=== PATIENT | female | born 1970 | race Caucasian/White ===

== ENCOUNTER 2017-10-13 13:26 | Emergency (ER) | END 2017-10-13 14:38 | disposition home or self-care (01) ==

== ENCOUNTER 2018-08-28 04:14 | Emergency (ER) | payer BC ==
[~2018-08-28] VITALS: Ht 160 cm; Wt 75.5 kg
[~2018-08-28 04:14] MED LIST: CEPH-443 PO; HYDR-3498 PO; IBUP-1542 PO; MUPI22OI2 TOP
[2018-08-28 04:19] VITALS: Ht 160 cm; Wt 75.5 kg
--- NOTE | 2018-08-28 04:30 | ERD ---
ER Documentation Chief Complaint Chief Complaint redness to right arm, warm to touch HPI Is a 47-year-old female who presents with redness to her right arm, that is warm to touch. She works at [employer]– [place], has noticed her symptoms since today, she denies any history of trauma, no wounds or lacerations, she does have prior history of cellulitis of the face, otherwise healthy. ROS All systems reviewed and are negative except as per history of present illness. Medications Home Meds Active Scripts Cephalexin* (Keflex*) 500 Mg Capsule, 500 MG PO QID for 7 Days, CAP Prov:TOÑO BOSS MD 08/28/18 Sulfamethoxazole/Trimethoprim* (Bactrim Ds* Tablet) 1 Each Tablet, 1 TAB PO BID, #14 TAB Prov:TOÑO BOSS MD 08/28/18 Cephalexin* (Keflex*) 500 Mg Capsule, 500 MG PO QID for 7 Days, CAP Prov:MOISÉS CHAMPAGNE PA-C 10/13/17 Mupirocin* (Bactroban*) 2% -22 Gram Oint...g., 1 APPLIC TOP BID for 7 Days, EA Prov:MOISÉS CHAMPAGNE PA-C 10/13/17 Hydrocodone Bit-Acetaminophen* ([place]*) 5-325 Mg Tab, 1 TAB PO Q6 PRN for PAIN, #7 TAB Prov:MARYAN GATES 03/05/15 Ibuprofen* (Motrin*) 600 Mg Tab, 600 MG PO Q6, #30 TAB Prov:MARYAN GATES 03/05/15 Allergies Allergies: Coded Allergies: isosulfan blue (Verified Allergy, Severe, 03/05/15) BLUE DYE ALLERGY PMhx/Soc History of Surgery: Yes (right breast ) Anesthesia Reaction: No Hx Neurological Disorder: No Hx Respiratory Disorders: No Hx Cardiac Disorders: No Hx Psychiatric Problems: No Hx Miscellaneous Medical Probl: Yes (breast cancer) Hx Alcohol Use: No Hx Substance Use: No Hx Tobacco Use: No Smoking Status: Never smoker FmHx Family History: No diabetes Physical Exam Vitals Vital Signs Date Temp Pulse Resp B/P (MAP) Pulse Ox O2 O2 Flow FiO2 Time Delivery Rate 08/28/18 98.4 99 16 108/72 96 04:19 (84) Physical Exam Const: No acute distress Head: Atraumatic Eyes: Normal Conjunctiva ENT: Normal External Ears, Nose and Mouth. Neck: Full range of motion. No meningismus. Resp: Clear to auscultation bilaterally Cardio: Regular rate and rhythm, no murmurs Abd: Soft, non tender, non distended. Normal bowel sounds Skin: No petechiae or rashes Back: No midline or flank tenderness Ext: No cyanosis, or edema. There is an area of redness and warmth over the right upper extremity, that extends to about the level of the mid humerus, there is no crepitus, no palpable fluctuance, pulses intact distally, cap refills less than 2 seconds. Neur: Awake and alert Psych: Normal Mood and Affect Result Diagram: 08/28/1844008/28/18440 Results 24 hrs Laboratory Tests Test 08/28/18 04:41 White Blood Count 8.3 10^3/ul Red Blood Count 4.22 10^6/ul Hemoglobin 12.4 g/dl Hematocrit 37.1 % Mean Corpuscular Volume 87.9 fl Mean Corpuscular Hemoglobin 29.4 pg Mean Corpuscular Hemoglobin Concent 33.4 g/dl Red Cell Distribution Width 12.6 % Platelet Count 198 10^3/UL Mean Platelet Volume 10.1 fl Immature Granulocytes % 0.200 % Neutrophils % 82.6 % Lymphocytes % 13.4 % Monocytes % 3.6 % Eosinophils % 0.1 % Basophils % 0.1 % Nucleated Red Blood Cells % 0.0 /100WBC Immature Granulocytes # 0.020 10^3/ul Neutrophils # 6.9 10^3/ul Lymphocytes # 1.1 10^3/ul Monocytes # 0.3 10^3/ul Eosinophils # 0.0 10^3/ul Basophils # 0.0 10^3/ul Nucleated Red Blood Cells # 0.0 10^3/ul Sodium Level 140 mmol/L Potassium Level 3.9 mmol/L Chloride Level 104 mmol/L Carbon Dioxide Level 27 mmol/L Anion Gap 9 Blood Urea Nitrogen 15 mg/dl Creatinine 0.58 mg/dl Est Glomerular Filtrat Rate mL/min > 60 mL/min Glucose Level 118 mg/dl Calcium Level 9.3 mg/dl Total Bilirubin 0.8 mg/dl Direct Bilirubin 0.00 mg/dl Indirect Bilirubin 0.8 mg/dl Aspartate Amino Transf (AST/SGOT) 29 IU/L Alanine Aminotransferase (ALT/SGPT) 32 IU/L Alkaline Phosphatase 85 IU/L Total Protein 7.9 g/dl Albumin 4.5 g/dl Globulin 3.40 g/dl Albumin/Globulin Ratio 1.32 Current Medications Medications Dose Sig/Dionne Start Time Status Last (Trade) Ordered Route PRN Stop Time Admin Dose Reason Admin 1 tab ONCE ONCE 08/28/18 DC 08/28/18 Trimethoprim/ PO 05:30 08/28/18 05:07 05:31 Sulfamethoxaz ole (Bactrim (Ds)) Cephalexin 500 mg ONCE ONCE 08/28/18 DC 08/28/18 (Keflex) PO 05:30 08/28/18 05:07 05:31 Procedures/MDM 47-year-old female presents for evaluation of right arm redness and warmth, her history and physical is consistent with most likely cellulitis, 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 Departure Diagnosis: Primary Impression: Cellulitis Site of cellulitis: unspecified site Qualified Codes: L03.90 - Cellulitis, unspecified Condition: Stable TOÑO BOSS MD Aug 28, 2018 04:30
[2018-08-28] MEDS ORDERED: CEPHALEXIN 500 MG CAP PO ONE (05:30)
[2018-08-28] MEDS ORDERED: TRIMETHOPRIM/SULFAMETHOX (DS) TAB PO ONE (05:30)
[2018-08-28] MEDS ORDERED: SULF1TAB31 PO (05:34)
[2018-08-28] MEDS ORDERED: CEPH-443 PO (05:35)
[2018-08-28 06:22] VITALS: BP 107/80; PULSE 98; RESP 16
== END 2018-08-28 06:25 | disposition home or self-care (01) ==
LOC: E/R 04:14
DX: L03.113 Cellulitis of right upper limb (principal); Z85.3 Personal history of malignant neoplasm of breast
CPT/HCPCS: 80053; 85025; 93971; 99284; Z7610